=== PATIENT | male | born 1980 | race Two or more races ===

== ENCOUNTER 2020-02-17 16:05 | Emergency (ER) | payer MEDICAID ==
[~2020-02-17] VITALS: Ht 185.4 cm; Wt 75.7 kg
--- NOTE | 2020-02-17 16:16 | NUR ---
PT BIBRA FRM USP. PT WAS FOUND IN THE FLOOR UNRESPONSIVE, BRADYPNEA. WAS GIVEN NARCAN INTRANASAL AND IV TOTAL 3 MG. PT IS AWAKE AND RESPONSIVE KETTLE TENDER. ON MONITOR. VSS. STABLE VITALS.
--- NOTE | 2020-02-17 16:20 | NUR ---
DR SAWYER AT BEDSIDE FOR EVAL.
--- NOTE | 2020-02-17 16:20 | NUR ---
BLOOD DRAWN AND SENT T LAB.
[2020-02-17 16:25] LABS: BASOPHILS % (AUTO) 0.4 % (0.0-2.0); EOSINOPHILS % (AUTO) 1.3 % (0.0-6.0); HEMATOCRIT 44 % (39-51); HEMOGLOBIN 14.6 g/dL (13.5-17.5); LYMPHOCYTES # (AUTO) 1.2 /CMM (0.8-4.8); MEAN CORPUSCULAR HGB CONC 33 g/dl (31.0-36.0); MEAN CORPUSCULAR VOLUME 91 fL (80-96); MONOCYTES # (AUTO) 0.6 /CMM (0.1-1.30); MONOCYTES % (AUTO) 7.2 % (2.0-12.0); NEUTROPHILS # (AUTO) 6.5 /CMM (1.8-8.9); NEUTROPHILS % (AUTO) 77.1 % (43.0-81.0); PLATELET COUNT (AUTO) 374 /CMM (150-450); RED BLOOD CELL COUNT(AUTO) 4.84 MIL/uL (4.5-6.0); WHITE BLOOD COUNT (AUTO) 8.4 K/uL (4.3-11.0)
[2020-02-17 16:33] LABS: CALCIUM, SERUM 8.4 mg/dL (8.5-10.1); CARBON DIOXIDE 25 mmol/L (21-32); CHLORIDE 103 mmol/L (98-107); CREATININE 1.5 mg/dL (0.6-1.3); GLUCOSE 166 mg/dL (74-106); POTASSIUM 3.1 mmol/L (3.5-5.1); SODIUM SERUM 140 mmol/L (136-145); UREA NITROGEN, BLOOD 16 mg/dL (7-18)
[2020-02-17 16:38] LABS: ALANINE AMINOTRANSFERASE 26 U/L (12-78); ALBUMIN 3.8 g/dL (3.4-5.0); ALKALINE PHOSPHATASE 70 U/L (46-116); ASPARTATE AMINOTRANSFERASE 18 U/L (15-37); BILIRUBIN,DIRECT 0.1 mg/dL (0.0-0.2); BILIRUBIN,TOTAL 0.2 mg/dL (0.2-1.0); TOTAL PROTEIN, SERUM 7.2 g/dL (6.4-8.2)
--- NOTE | 2020-02-17 19:12 | NUR ---
REPORT GIVEN TO SUPERVISOR COMPONENT [employer]SEMBLER NURSE [place] FOR [facility].
--- NOTE | 2020-02-17 19:36 | NUR ---
PT RESTING COMFORTABLY. VSS. PROVIDED WITH BLANKET.
--- NOTE | 2020-02-17 19:45 | NUR ---
PT AMBUALTED THROUGH THE ED. PT AMBUALTED WITH STEADY GAIT. DENIES PAIN, VSS, WALKED BACK TO THE BED.
--- NOTE | 2020-02-17 19:58 | NUR ---
IV removed. Catheter intact and site benign. Pressure and 4x4 applied to site. No bleeding noted.
--- NOTE | 2020-02-17 20:14 | NUR ---
Patient discharged to home in stable condition. Written and verbal after care instructions given. Patient verbalizes understanding of instruction and rx. Pt ambulated with steady gait. vss. Homeless discharge paper signed. Pt provided with food and socks.
[2020-02-17 20:16] VITALS: BP 127/71
== END 2020-02-17 20:20 | disposition home or self-care (01) ==
LOC: ER 16:07
DX: T40.4X1A Poisoning by other synthetic narcotics, accidental (unintentional), initial encounter (principal); R94.31 Abnormal electrocardiogram [ECG] [EKG]; Y92.89 Other specified places as the place of occurrence of the external cause
CPT/HCPCS: 36415; 71045-TC; 80048-TC; 80076-TC; 84484-TC; 85025-TC